=== PATIENT | male | born 1960 | race Caucasian/White ===

== ENCOUNTER 2019-03-03 10:12 | Day surgery (SDC) | payer MEDICAID ==
[~2019-03-03] VITALS: Ht 180.3 cm; Wt 98.8 kg
[~2019-03-03 10:12] MED LIST: OXYMETAZOLINE NASAL SPRAY 0.05%, 15ML ONE
[2019-03-03] MEDS ORDERED: LACTATED RINGERS 1,000 ML IV SCH (10:39)
[2019-03-03 11:15] VITALS: BP 113/70
[2019-03-03] MEDS ORDERED: PRED10TA PO (11:33)
[2019-03-03] MEDS ORDERED: ALBU18HF INH (11:33)
[2019-03-03] MEDS ORDERED: AMLO1CAP15 PO (11:33)
[2019-03-03] MEDS ORDERED: MONT10TA9 PO (11:33)
[2019-03-03] MEDS ORDERED: UMEC62.5 INH (11:33)
[2019-03-03 11:36] LABS: ALANINE AMINOTRANSFERASE 35 U/L (12-78); ANION GAP 7 mmol/L (5-15); CALCIUM 9.1 mg/dL (8.5-10.1); CHLORIDE 106 mmol/L (98-107); CREATININE 1.12 mg/dL (0.7-1.3)
[2019-03-03 11:39] LABS: ALKALINE PHOSPHATASE 123 U/L (45-117); BILIRUBIN,TOTAL 0.5 mg/dL (0.2-1.0); TOTAL PROTEIN 7.3 g/dL (6.4-8.2)
[2019-03-03] MEDS ORDERED: FENTANYL PF 250 MCG/5ML ONE (13:10)
[2019-03-03] MEDS ORDERED: PROPOFOL 10 MG/ML, 20ML ONE ×2 (13:10)
[2019-03-03] MEDS ORDERED: MIDAZOLAM 1 MG/ML, 2ML ONE (13:10)
[2019-03-03] MEDS ORDERED: SUCCINYLCHOLINE 20 MG/ML, 10ML ONE (13:10)
[2019-03-03] MEDS ORDERED: CEFAZOLIN 1,000 MG ONE ×2 (13:11)
[2019-03-03] MEDS ORDERED: OXYcodone 5 MG/5 ML ORAL.SOL UDC PO PRN (13:30)
[2019-03-03] MEDS ORDERED: FENTANYL PF 100 MCG/2ML IV PRN ×2 (13:30→15:30)
[2019-03-03] MEDS ORDERED: PROMETHAZINE 25 MG/ML, 1ML IV PRN ×2 (13:30→15:30)
[2019-03-03] MEDS ORDERED: HYDROCORTISONE 100 MG INJ. ONE (13:46)
[2019-03-03] MEDS ORDERED: FAMOTIDINE 20 MG TABLET PO ONE (14:00)
[2019-03-03] MEDS ORDERED: ACETAMINOPHEN 500 MG TABLET PO ONE (14:00)
[2019-03-03] MEDS ORDERED: OXYcodone IR 5MG TABLET PO ONE (14:00)
[2019-03-03] MEDS ORDERED: DEXAMETHASONE 4 MG/ML, 1ML ONE (14:17)
[2019-03-03] MEDS ORDERED: ONDANSETRON 2MG/ML, 2ML ONE (14:17)
[2019-03-03] MEDS ORDERED: PHENYLEPHRINE 10 MG/ML ONE (14:18)
[2019-03-03] MEDS ORDERED: FLUORESCEIN SODIUM 500 MG/5 ML IV ONE (14:30)
[2019-03-03] MEDS ORDERED: EPINEPHRINE TOPICAL SOLN 1 MG/ML, 30ML TP ONE (14:30)
[2019-03-03] MEDS ORDERED: LIDOCAINE 1%-EPI 1:100K, 20ML INFIL ONE (14:31)
[2019-03-03] MEDS ORDERED: BACITRACIN OINT 500U/GM, 15 GM TP ONE (14:31)
[2019-03-03] MEDS ORDERED: ACETAMINOPHEN 325 MG TABLET PO PRN (15:30)
[2019-03-03] MEDS ORDERED: ALBUTEROL SULFATE 2.5 MG/3 ML NPPB PRN (15:30)
[2019-03-03] MEDS ORDERED: FLUORESCEIN SODIUM 500 MG/5 ML ONE (16:41)
[2019-03-03] MEDS ORDERED: EPINEPHRINE TOPICAL SOLN 1 MG/ML, 30ML ONE (16:41)
[2019-03-03] MEDS ORDERED: LIDOCAINE 1%-EPI 1:100K, 20ML ONE (16:42)
[2019-03-03] MEDS ORDERED: ALBUTEROL/IPRATROPIUM 2.5MG/0.5MG, 3 ML ONE (16:46)
[2019-03-03] MEDS ORDERED: IPRATROPIUM 0.5 MG/2.5 ML INHA HHN SCH (17:00)
[2019-03-03] MEDS ORDERED: OXYcodone 5 MG/5 ML ORAL.SOL UDC ONE (17:10)
== END 2019-03-03 18:55 | disposition home or self-care (01) ==
LOC: OUT 10:12
PROVIDERS: ATTEND Otolaryngology
DX: J34.2 Deviated nasal septum (principal); J32.0 Chronic maxillary sinusitis; J32.2 Chronic ethmoidal sinusitis; J34.3 Hypertrophy of nasal turbinates; J32.1 Chronic frontal sinusitis; J33.8 Other polyp of sinus; F15.90 Other stimulant use, unspecified, uncomplicated; K21.9 Gastro-esophageal reflux disease without esophagitis; I50.9 Heart failure, unspecified
CPT/HCPCS: 30140; 30520; 31240; 31253; 31259; 31267; 36415; 80053; 87070; 87075; 87077; 87186; 87205; 88304; 88311; 94640; J0330; J0690; J1100; J1720; J2250; J2370; J2405; J2704; J3010; J3490; J7120; J7613; J7644